=== PATIENT | male | born 1960 | race Caucasian/White ===

== ENCOUNTER 2022-07-17 08:53 | Emergency (ER) | payer OTHER ==
[~2022-07-17] VITALS: Ht 182.9 cm; Wt 113.5 kg
[2022-07-17 10:50] VITALS: BP 148/74
[2022-07-17] MEDS ORDERED: KETOROLAC TROMETH 60MG/2ML VIAL IM ONE (11:00)
[2022-07-17] MEDS ORDERED: IBUP800T27 PO (11:04)
[2022-07-17] MEDS ORDERED: CYCL-839 PO (11:04)
== END 2022-07-17 11:20 | disposition home or self-care (01) ==
LOC: ER 08:53
DX: S23.41XA Sprain of ribs, initial encounter (principal); S39.012A Strain of muscle, fascia and tendon of lower back, initial encounter; W19.XXXA Unspecified fall, initial encounter; Y93.89 Activity, other specified; Y92.89 Other specified places as the place of occurrence of the external cause; Y99.8 Other external cause status
CPT/HCPCS: 71101; 96372; 99283; J1885